=== PATIENT | male | born 1945 | race Caucasian/White ===

== ENCOUNTER 2017-05-05 19:56 | Inpatient (IN) | payer MEDICARE ==
[~2017-05-05] VITALS: Ht 167.6 cm; Wt 72.8 kg
[2017-05-05 20:57] VITALS: BP 183/79
[2017-05-05 20:58] VITALS: BP 183/79
[2017-05-05 21:15] VITALS: BP 172/68
[2017-05-05] MEDS ORDERED: SODIUM CHLORIDE FLUSH 10 ML SYR INJ PRN (22:15)
[2017-05-05] MEDS ORDERED: VANCOMYCIN 1GM/NS 250 ML 250 ML IV SCH (23:00)
[2017-05-05] MEDS ORDERED: SODIUM CHLORIDE 0.9% 250ML 250 ML ONE (23:21)
[2017-05-06] VITALS (7 sets, daily range): BP systolic 120–186; BP diastolic 57–88
[2017-05-06] MEDS: HYDROCODONE/APAP 7.5MG-325MG 1 EA TAB PO PRN
[2017-05-06] MEDS: PIPER-TAZ 3.375 GM 50 ML IV SCH ×2 (01:50→05:20)
[2017-05-06 06:56] LABS: BASOPHILS # (AUTO) 0.1 (0.0-0.1); BASOPHILS % 0.8 % (0.0-1.0); EOSINOPHILS # (AUTO) 0.5 (0.0-0.4); EOSINOPHILS % 4.6 % (0.0-6.0); HEMATOCRIT 40.2 % (38.2-49.6); HEMOGLOBIN 12.3 g/dL (14.0-18.0); LYMPHOCYTES # (AUTO) 4.1 (1.0-3.2); LYMPHOCYTES % 39.5 % (18.0-39.1); MEAN CORPUSCULAR HEMOGLOBIN 30.6 pg (28-32); MEAN CORPUSCULAR HGB CONC 30.6 g/dL (31-35); NEUTROPHILS # (AUTO) 4.6 (2.1-6.9); NEUTROPHILS % 44.3 % (38.7-80.0); PLATELET COUNT 286 x10e3/uL (140-360); RED BLOOD COUNT 4.02 x10e6/uL (4.3-5.7); RED CELL DISTRIBUTION WIDTH 14.6 % (11.7-14.4)
[2017-05-06 07:21] LABS: ANION GAP 19.7 mmol/L (8-16); CALCIUM 7.1 mg/dL (8.4-10.2); CREATININE, SERUM 6.8 mg/dL (0.72-1.25); POTASSIUM 3.7 mmol/L (3.5-5.1)
--- NOTE | 2017-05-06 11:07 | Consultation ---
DATE OF CONSULTATION: May 06, 2017 INFECTIOUS DISEASE CONSULTATION ATTENDING PHYSICIAN: Dr. Hector Sims REASON FOR CONSULTATION: Right foot gangrene. Thank you, Dr. Leach and Dr. Sims for asking me to see this patient. HISTORY: The patient is a 71-year-old man referred for right foot gangrene. He was admitted from Dr. Leach's office. He does not recall exactly how the right great toe lesion began. However, he remembers the right great toenail falling off a few months ago. Subsequently, he was evaluated by the primary care physician and treated with ciprofloxacin, which he was taking as prescribed until admission. Unfortunately, he noted progressive discoloration of the right great toe and decided to see Dr. Leach. He denies fever and chills. PAST MEDICAL HISTORY 1. Diabetes mellitus, type 2. 2. Hypertension. 3. Hyperlipidemia. 4. End-stage renal disease. 5. Peripheral arterial disease, status post stenting. 6. Lung cancer treated with surgery. PAST SURGICAL HISTORY 1. C5-C6 fusion. 2. AICD implant. 3. Left upper lobectomy for lung cancer. 4. Cholecystectomy. 5. Right arm fistula creation. ALLERGIES: IODINE. MEDICATIONS: See MAR. The current antibiotics are Zosyn 3.375 g IV piggyback q.6 h. and vancomycin 1 g IV piggyback q.12 h. IMMUNIZATIONS: He received influenza and pneumococcal vaccination prior to admission. He does not recall receiving tetanus vaccine in more than 10 years. FAMILY HISTORY: Significant for pneumoconiosis and emphysema. SOCIAL HISTORY: He quit smoking cigarettes about 30 years ago. REVIEW OF SYSTEMS: As per history of present illness. PHYSICAL EXAMINATION GENERAL: No acute distress. VITAL SIGNS: T-max 99.1, pulse 66, respiratory rate 18, blood pressure 144/66, weight 160 pounds. HEENT: Normocephalic. There is no icterus or injection of conjunctivae. There is no ear or nasal discharge. Edentulous with moist oral mucosa. No pharyngeal erythema. NECK: Supple. No lymphadenopathy. LUNGS: Good air entry bilaterally. HEART: Normal S1 and S2. ABDOMEN: Soft and nontender. EXTREMITIES: There is edema and gangrene of the right great toe with black discoloration of the distal phalanx as well as malodor. The dorsalis pedis and posterior tibial pulses are difficult to palpate. There is no edema, clubbing or cyanosis of the rest of the extremities. SKIN: There is necrosis of the right great toe. DINING ROOM BUSSER: Awake, alert and oriented to person, place and time. There is decreased sensation on monofilament examination of the feet. Also, there is decreased vibration sensation of both feet and ankles. Nonfocal. LABORATORY: WBC 10,440, hemoglobin 12.3, platelets 286, neutrophils 44.3, lymphocytes 39.5, monos 10, eosinophils 4.6, basophils 0.8. BUN 6.8, creatinine 4.2, blood glucose 278, hemoglobin A1c 8.5. IMPRESSION 1. Right great toe gangrene. 2. Right diabetic foot ulcer with probable osteomyelitis of the distal phalanx of the right great toe. 3. Diabetes mellitus, type 2, with peripheral neuropathy, uncontrolled. 4. End-stage renal disease. 5. Peripheral arterial disease, status post stenting. PLAN 1. Change vancomycin to 1 g IV piggyback post hemodialysis and Zosyn to 2.25 g IV piggyback q.8 h. Tetanus-Diphtheria vaccination discussed with the patient. 2. Check ESR and C-reactive protein. 3. Await possible amputation of the right great toe. Job#: [id number] JOSÉ MIGUEL ARREOLA
[2017-05-06 11:42] LABS: ANISOCYTOSIS SLIGHT; EOSINOPHILS % (MANUAL) 4 % (0-7); LYMPHOCYTES % (MANUAL) 23 % (19-48); MONOCYTES % (MANUAL) 7 % (3.4-9.0); NEUTROPHILS % (MANUAL) 48 % (40-74); PLATELET ESTIMATE ADEQUATE; PLATELET MORPHOLOGY COMMENT FEW GIANT; POIKILOCYTOSIS SLIGHT; RBC MORPHOLOGY COMMENT NORMAL
--- NOTE | 2017-05-06 12:23 | Consultation ---
DATE OF CONSULTATION: May 06, 2017 RENAL CONSULTATION HISTORY OF PRESENT ILLNESS: Mr. Agustin Valencia is a 71-year-old gentleman well known to our nephrology service on dialysis on Friday//Friday schedule. Renal consult for management of kidney failure. He is otherwise awake, alert, comfortable. Has been admitted with gangrenous foot. Please see Dr. Long Zapata's note for detail. He is currently awake, alert. Denies any nausea, vomiting, shortness of breath ALLERGIES: HE IS ALLERGIC TO IODINE. CURRENT MEDICATIONS: Include vancomycin post dialysis and Tylenol and hydrocodone p.r.n. SOCIAL HISTORY: Patient does not smoke or drink. PAST MEDICAL HISTORY: Significant for secondary hyperparathyroidism, anemia, chronic kidney disease, severe peripheral vascular disease, coronary artery disease, end-stage renal disease. FAMILY HISTORY: Significant for hypertension. PHYSICAL EXAMINATION: GENERAL: Awake, alert, lying supine. No apparent distress. VITALS: Blood pressure 144/66, pulse rate 80. HEAD AND NECK: Cornea clear. Oral mucosa moist. Neck veins flat. LUNGS: Bibasilar rales. HEART: S1/S2 audible. ABDOMEN: Soft, nontender. LOWER EXTREMITY EXAMINATION: Shows no edema. Dressing over the foot noted. IMPRESSION: 1. Evidence of fluid overload. 2. Secondary hyperparathyroidism. Will resume phosphorus binders. Obtain Mircera schedule from the dialysis unit. Blood pressure appears controlled. Arrange for dialysis. Further recommendation . Job#: [id number] EV
--- NOTE | 2017-05-06 13:40 | Consultation ---
DATE OF CONSULTATION: May 06, 2017 PODIATRY CONSULTATION REASON FOR CONSULTATION: Followup regarding right foot gangrene, particularly the great toe. HISTORY OF PRESENT ILLNESS: Mr. Valencia is a pleasant male 71 years of age, originally seen last David at my office with gangrenous changes associated to the right foot, particularly the right great toe. Subsequently was seen several days later, albeit yesterday, for further followup with malodor associated to his right foot with gangrenous changes to the distal aspect of the right foot, albeit hallux, and due to the appearance of the same, recommended inpatient management and perhaps ultimately amputation of the digit, and at this point he is currently being worked up for the same. PAST MEDICAL HISTORY: Remarkable for 1. Diabetes. 2. Hypertension. 3. Hyperlipidemia. 4. End-stage renal disease. 5. Peripheral arterial disease. 6. Lung cancer. SURGICAL HISTORY: Multiple include left lung lobectomy, cholecystectomy, fistula creation for hemodialysis, AICD implant, and cervical fusion. ALLERGIES: IODINE. MEDICATIONS: Please see MAR for current medication list. FAMILY HISTORY: Noncontributory. SOCIAL HISTORY: Relates no more smoking. Occasional alcohol use. Denies any illicit drug use. REVIEW OF SYSTEMS: Eleven-point review of systems otherwise negative. PHYSICAL EXAMINATION: VITAL SIGNS: Stable. He is afebrile with a T-max of 99.1. GENERAL: AO x3, NAD. HEENT: Normocephalic, atraumatic, anicteric. Moist mucosal membranes. NECK: Supple. No JVD. CHEST: Symmetrical expansion. ABDOMEN: Soft, nontender, nondistended. PSYCHIATRIC: Normal affect. EXTREMITIES: Discoloration distal aspect of the great toe distally with gangrenous changes, malodor, some erythema extending proximally. DIAGNOSTIC DATA: HbA1c 8.5. Accu-Chek 278. Hemoglobin and hematocrit 12.3 and 40.2 respectively. ASSESSMENT 1. Right foot gangrene, particularly the great toe. 2. Diabetic ulceration right foot. 3. End-stage renal disease on hemodialysis, diabetic with type 2 diabetes uncontrolled with a history of peripheral arterial disease. PLAN: Further workup. Will ultimately need a right great toe amputation. Appreciate infectious disease as well as renal and internal medicine's input. Job#: [id number] EV
[2017-05-06] MEDS: SEVELAMER CARBONATE 800 MG TAB PO SCH ×2 (14:21→17:00)
[2017-05-06] MEDS ORDERED: SODIUM BICARBONATE 8.4% SYRING 0 ML ONE (16:24)
[2017-05-06] MEDS ORDERED: SODIUM CHLORIDE 0.9% 1000ML 2,000 ML ONE (16:25)
[2017-05-06] MEDS ORDERED: DEXTROSE 50% SYRINGE 50 ML IV PRN (18:15)
[2017-05-06] MEDS ORDERED: NIFEDIPINE CR 30 MG TAB PO NR (18:30)
[2017-05-06] MEDS: NIFEDIPINE CR 30 MG TAB PO SCH (19:42)
[2017-05-06] MEDS ORDERED: CARVEDILOL12.5 MG PO (20:41)
[2017-05-06] MEDS ORDERED: NIFEDIPINE ER30 M1 (20:41)
[2017-05-06] MEDS ORDERED: HYDRALAZINE HCL25 MG PO (20:41)
[2017-05-06] MEDS ORDERED: CLOPIDOGREL75 MG PO (20:41)
[2017-05-06] MEDS ORDERED: PRAVASTATIN SOD40 MG (20:41)
[2017-05-06] MEDS ORDERED: FAMOTIDINE20 MG PO (20:41)
[2017-05-06] MEDS ORDERED: METOPROLOL SUCC25 MG (20:41)
[2017-05-06] MEDS ORDERED: GABAPENTIN300 MG PO (20:41)
[2017-05-06] MEDS ORDERED: SERTRALINE HCL50 MG PO (20:42)
[2017-05-06] MEDS ORDERED: HUMULIN R100 UNIT/2 (20:43)
[2017-05-06] MEDS: INSULIN LISPRO 100 UNIT/1 ML 3ML VIAL SQ SCH (21:00)
[2017-05-06] MEDS: INSULIN DETEMIR 100 UNIT/ML PEN SQ SCH (21:00)
[2017-05-06] MEDS ORDERED: VANCOMYCIN 1GM/NS 250 ML 250 ML IV SCH (23:00)
[2017-05-06] MEDS ORDERED: NIFEDIPINE CR 30 MG TAB PO ONE (23:00)
[2017-05-06] MEDS: SENNOSIDES 8.6 MG TAB PO SCH (23:04)
[2017-05-07] VITALS (8 sets, daily range): BP systolic 125–178; BP diastolic 62–87
[2017-05-07] MEDS: INSULIN LISPRO 100 UNIT/1 ML 3ML VIAL SQ SCH ×4 (07:30→21:00)
[2017-05-07] MEDS: SEVELAMER CARBONATE 800 MG TAB PO SCH ×3 (08:18→16:24)
[2017-05-07] MEDS: HYDROCODONE/APAP 7.5MG-325MG 1 EA TAB PO PRN (09:34)
[2017-05-07] MEDS: PIPERACILLIN/TAZO 2.25 GM 50 ML IV SCH ×2 (10:41→17:57)
[2017-05-07] MEDS ORDERED: TETANUS/DIPHTHERIA TOX ADULT 0.5 ML SYR IM ONE (10:45)
[2017-05-07] MEDS ORDERED: TETANUS/DIPHTHERIA TOX ADULT 0.5 ML SYR IM SCH (11:00)
[2017-05-07] MEDS: VALSARTAN 80 MG TAB PO SCH (17:58)
[2017-05-07] MEDS: INSULIN DETEMIR 100 UNIT/ML PEN SQ SCH (21:00)
[2017-05-07] MEDS: SENNOSIDES 8.6 MG TAB PO SCH (21:15)
[2017-05-08] VITALS: BP 156/89
[2017-05-08] MEDS: PIPERACILLIN/TAZO 2.25 GM 50 ML IV SCH ×3 (02:14→18:00)
[2017-05-08] MEDS: HYDROCODONE/APAP 7.5MG-325MG 1 EA TAB PO PRN ×3 (03:00→23:55)
[2017-05-08 04:00] VITALS: BP 147/66
[2017-05-08] MEDS: NIFEDIPINE CR 30 MG TAB PO SCH ×2 (06:00→23:50)
[2017-05-08] MEDS: INSULIN LISPRO 100 UNIT/1 ML 3ML VIAL SQ SCH ×4 (07:30→20:58)
[2017-05-08 07:38] VITALS: BP 179/79
[2017-05-08] MEDS: SEVELAMER CARBONATE 800 MG TAB PO SCH ×3 (07:55→17:00)
[2017-05-08 09:48] VITALS: BP 179/79
[2017-05-08] MEDS ORDERED: LIDOCAINE HCL 2% LOCAL 20 ML VIAL ONE (11:22)
[2017-05-08] MEDS ORDERED: BACITRACIN 50,000 UNIT VIAL ONE (11:22)
[2017-05-08 12:15] VITALS: BP 164/74
[2017-05-08] MEDS ORDERED: SODIUM CHLORIDE 0.9% 1000ML 1,000 ML ONE (14:23)
[2017-05-08 15:34] VITALS: BP 140/78
[2017-05-08] MEDS: VALSARTAN 80 MG TAB PO SCH (18:58)
[2017-05-08] MEDS ORDERED: SODIUM CHLORIDE 0.9% 250ML 250 ML ONE (20:24)
[2017-05-08] MEDS: INSULIN DETEMIR 100 UNIT/ML PEN SQ SCH (20:58)
[2017-05-08] MEDS: SENNOSIDES 8.6 MG TAB PO SCH (21:00)
[2017-05-08] MEDS ORDERED: CLONIDINE HCL 0.1 MG TAB PO PRN (21:30)
[2017-05-08] MEDS: HYDRALAZINE HCL 25 MG TAB PO SCH (23:55)
[2017-05-09] MEDS: PIPERACILLIN/TAZO 2.25 GM 50 ML IV SCH ×3 (01:56→18:04)
[2017-05-09] MEDS: HYDRALAZINE HCL 25 MG TAB PO SCH ×4 (05:51→18:04)
[2017-05-09] MEDS: INSULIN LISPRO 100 UNIT/1 ML 3ML VIAL SQ SCH ×4 (07:30→20:57)
[2017-05-09 07:48] VITALS: BP 166/78
[2017-05-09] MEDS: SEVELAMER CARBONATE 800 MG TAB PO SCH ×3 (08:00→18:04)
[2017-05-09] MEDS: SERTRALINE HCL 50 MG TAB PO SCH (08:35)
[2017-05-09] MEDS: FAMOTIDINE 20 MG TAB PO SCH (08:36)
[2017-05-09 08:48] LABS: ANION GAP 17.2 mmol/L (8-16); CALCIUM 8.5 mg/dL (8.4-10.2); CREATININE, SERUM 3.89 mg/dL (0.72-1.25); POTASSIUM 4.2 mmol/L (3.5-5.1)
[2017-05-09] MEDS: CARVEDILOL 12.5 MG TAB PO SCH ×2 (08:58→18:03)
[2017-05-09] MEDS: GABAPENTIN 300 MG CAP PO SCH ×2 (08:59→18:03)
[2017-05-09] MEDS: NIFEDIPINE CR 30 MG TAB PO SCH ×2 (08:59→18:04)
[2017-05-09 09:28] VITALS: BP 166/78
[2017-05-09] MEDS ORDERED: FLUCONAZOLE 200 MG/100 ML 100 ML IV ONE (09:51)
[2017-05-09] MEDS: HYDROCODONE/APAP 7.5MG-325MG 1 EA TAB PO PRN ×2 (09:58→21:57)
[2017-05-09] MEDS ORDERED: SODIUM CHLORIDE 0.9% 500ML 500 ML ONE (12:28)
[2017-05-09] MEDS ORDERED: VANCOMYCIN HCL 1 GM VIAL ONE (12:57)
[2017-05-09] MEDS ORDERED: LIDOCAINE HCL 1% LOCAL INJ 20 ML VIAL ONE (13:22)
[2017-05-09] MEDS ORDERED: BUPIVACAINE HCL 0.5% INJ 30 ML VIAL INJ ONE (13:22)
[2017-05-09] MEDS ORDERED: MUPIROCIN 2% OINT 22 GM TUBE ONE (13:41)
--- NOTE | 2017-05-09 14:34 | Diagnostic Imaging Report ---
PROCEDURE:X-RAY RIGHT FOOT, TWO VIEWS COMPARISON:None. INDICATIONS:POST OP FOOT AMPUTATION SX FINDINGS: See conclusion. CONCLUSION: AP and lateral post-operative views of the right foot with overlying bandage material show post-surgical changes of first toe amputation at the level of metatarsophalangeal joint. There is surrounding soft-tissue swelling consistent with recent surgery. Vascular calcifications. Dictated by: Arturo Franklin M.D. on 05/09/2017 at 14:35 Electronically approved by: Arturo Franklin M.D. on 05/09/2017 at 14:35
--- NOTE | 2017-05-09 14:40 | Operative Report ---
DATE OF PROCEDURE: May 09, 2017 PREOPERATIVE DIAGNOSIS: Gangrene right great toe. POSTOPERATIVE DIAGNOSIS: Gangrene right great toe. PROCEDURE PERFORMED 1. Amputation at the level of the 1st metatarsophalangeal joint right foot. 2. Rotational flap closure. ANESTHESIA: MAC and local. HEMOSTASIS: Pneumatic tourniquet right ankle inflated to 250 mmHg. ESTIMATED BLOOD LOSS: Less than 5 mL. PATHOLOGY: Hallux. DORMITORY COUNSELOR: None. INDICATIONS FOR PROCEDURE: Mr. Valencia is a pleasant male having a gangrenous right great toe. He was admitted secondary to the same, worked up, and at this point ready for surgical intervention, albeit amputation of the same as no other treatment is available. He was educated on the risks and complications including but not limited to the need for further more proximal amputations if the aforementioned fails. DESCRIPTION OF PROCEDURE: Under mild sedation, he was brought to the operating room and placed on the operating room table in the supine position. Following induction and administration of general LMA anesthesia by anesthesia services, a well-padded pneumatic tourniquet was placed on the patient's right ankle. Next, the distal right lower extremity was scrubbed, prepped and draped in the usual aseptic manner. The extremity was then elevated and exsanguinated and a tourniquet inflated to 250 mmHg. The distal right foot and ankle were then scrubbed, prepped and draped in the usual aseptic manner. Attention was then directed to the medial aspect of the right foot where fishmouth-like incisions were created overlying the distal interphalangeal joint. Unfortunately, at this point disarticulation at that level was not possible secondary to a significant amount of skin distal to the same had necrosed and there was no availability for primary closure. Thus at this point a complete phalangectomy was performed, albeit proximal phalanx, disarticulating it at the level of the metatarsophalangeal joint. Procedure number 2, rotational flap closure: Then pedicles were created and, after rotation of such, primary closures were obtained via rotational flap. Local block was then administered prior to procedure as well as post, and compressive dressings were then subsequently applied. He was then transferred to the PACU after tourniquet deflation. Noted that during the procedure the left biceps got engorged secondary to presumably poor IV access, and secondary to the same in PACU a PICC line was ordered to have reliable IV access. Job#: [id number] EV
[2017-05-09] MEDS ORDERED: PROPOFOL IV EMULSION 10 MG/ML 20 ML VIAL ONE (18:09)
[2017-05-09] MEDS ORDERED: MIDAZOLAM HCL 2 MG/2 ML VIAL ONE (18:27)
[2017-05-09] MEDS ORDERED: FENTANYL CITRATE/PF 100MCG/2 ML INJ ONE (18:27)
[2017-05-09] MEDS: INSULIN DETEMIR 100 UNIT/ML PEN SQ SCH (20:57)
[2017-05-09] MEDS: SENNOSIDES 8.6 MG TAB PO SCH (20:58)
[2017-05-09] MEDS: VALSARTAN 80 MG TAB PO SCH (20:58)
[2017-05-09 21:10] VITALS: BP 119/80
[2017-05-10] VITALS (7 sets, daily range): BP systolic 100–157; BP diastolic 49–93
[2017-05-10] MEDS: PIPERACILLIN/TAZO 2.25 GM 50 ML IV SCH ×3 (03:46→20:59)
[2017-05-10] MEDS: HYDRALAZINE HCL 25 MG TAB PO SCH ×4 (06:00→17:24)
[2017-05-10] MEDS: INSULIN LISPRO 100 UNIT/1 ML 3ML VIAL SQ SCH ×4 (07:57→20:52)
[2017-05-10] MEDS: SEVELAMER CARBONATE 800 MG TAB PO SCH ×3 (08:10→17:00)
[2017-05-10] MEDS: HYDROCODONE/APAP 7.5MG-325MG 1 EA TAB PO PRN (08:11)
[2017-05-10] MEDS: NIFEDIPINE CR 30 MG TAB PO SCH ×2 (09:10→17:00)
[2017-05-10] MEDS: SERTRALINE HCL 50 MG TAB PO SCH (09:10)
[2017-05-10] MEDS: FAMOTIDINE 20 MG TAB PO SCH (09:10)
[2017-05-10] MEDS: GABAPENTIN 300 MG CAP PO SCH ×2 (09:10→17:00)
[2017-05-10] MEDS: CARVEDILOL 12.5 MG TAB PO SCH ×2 (09:10→17:00)
[2017-05-10] MEDS ORDERED: KETOROLAC TROMETHAMINE 30 MG/ML VIAL IV PRN (13:30)
[2017-05-10] MEDS: HYDROCODONE/APAP 10MG-325MG TAB PO PRN ×2 (13:53→20:53)
[2017-05-10] MEDS: SENNOSIDES 8.6 MG TAB PO SCH (17:00)
[2017-05-10] MEDS: INSULIN DETEMIR 100 UNIT/ML PEN SQ SCH (20:52)
[2017-05-10] MEDS: VALSARTAN 80 MG TAB PO SCH (20:52)
[2017-05-11] VITALS (7 sets, daily range): BP systolic 110–183; BP diastolic 51–86
[2017-05-11] MEDS: HYDRALAZINE HCL 25 MG TAB PO SCH ×3 (00:48→11:47)
[2017-05-11] MEDS: PIPERACILLIN/TAZO 2.25 GM 50 ML IV SCH ×2 (01:49→10:14)
[2017-05-11] MEDS: INSULIN LISPRO 100 UNIT/1 ML 3ML VIAL SQ SCH ×4 (08:00→21:40)
[2017-05-11] MEDS: SEVELAMER CARBONATE 800 MG TAB PO SCH ×3 (08:00→16:35)
[2017-05-11] MEDS: CARVEDILOL 12.5 MG TAB PO SCH ×2 (09:00→16:31)
[2017-05-11] MEDS: NIFEDIPINE CR 30 MG TAB PO SCH ×2 (09:00→16:32)
[2017-05-11] MEDS: FAMOTIDINE 20 MG TAB PO SCH (09:22)
[2017-05-11] MEDS: GABAPENTIN 300 MG CAP PO SCH ×2 (09:22→16:35)
[2017-05-11] MEDS: SERTRALINE HCL 50 MG TAB PO SCH (09:23)
[2017-05-11] MEDS: SENNOSIDES 8.6 MG TAB PO SCH ×2 (09:23→17:00)
[2017-05-11] MEDS: HYDROCODONE/APAP 10MG-325MG TAB PO PRN (10:17)
[2017-05-11] MEDS ORDERED: HYDRALAZINE HCL 25 MG TAB PO PRN (15:30)
[2017-05-11] MEDS ORDERED: VANCOMYCIN 1GM/NS 250 ML 250 ML IV SCH (16:00)
[2017-05-11] MEDS: VALSARTAN 80 MG TAB PO SCH (20:19)
[2017-05-12] VITALS (7 sets, daily range): BP systolic 136–168; BP diastolic 64–89
[2017-05-12] MEDS: INSULIN LISPRO 100 UNIT/1 ML 3ML VIAL SQ SCH ×4 (07:30→21:47)
[2017-05-12] MEDS: SEVELAMER CARBONATE 800 MG TAB PO SCH ×3 (08:00→16:02)
[2017-05-12] MEDS: SENNOSIDES 8.6 MG TAB PO SCH ×2 (09:20→16:02)
[2017-05-12] MEDS: SERTRALINE HCL 50 MG TAB PO SCH (09:20)
[2017-05-12] MEDS: CARVEDILOL 12.5 MG TAB PO SCH ×3 (09:20→16:03)
[2017-05-12] MEDS: NIFEDIPINE CR 30 MG TAB PO SCH ×3 (09:20→16:03)
[2017-05-12] MEDS: FAMOTIDINE 20 MG TAB PO SCH (09:20)
[2017-05-12] MEDS: GABAPENTIN 300 MG CAP PO SCH ×2 (09:20→16:02)
[2017-05-12] MEDS ORDERED: CEFEPIME HCL 1 GM VIAL IV SCH (09:30)
[2017-05-12 10:46] LABS: THYROID STIMULATING HORMONE 0.719 uIU/mL (0.350-4.940)
[2017-05-12 10:55] LABS: FOLATE 9.3 ng/mL (7.0-15.4)
[2017-05-12 13:23] LABS: INR 1.15; PROTHROMBIN TIME 13.8 seconds (11.9-14.5)
[2017-05-12 13:24] LABS: PARTIAL THROMBOPLASTIN TIME 39.2 seconds (23.8-35.5)
[2017-05-12] MEDS ORDERED: SODIUM CHLORIDE 0.9% 500ML 500 ML ONE (13:57)
[2017-05-12] MEDS ORDERED: LIDOCAINE HCL 2% LOCAL 20 ML VIAL ONE (13:57)
[2017-05-12] MEDS ORDERED: HEPARIN SOD (PORCINE) 1000 UNIT/ML 30ML ONE (14:45)
[2017-05-12] MEDS: VALSARTAN 80 MG TAB PO SCH (21:46)
[2017-05-13] VITALS: BP_SYST 121; BP_SYST 175; BP_DIAS 64; BP_DIAS 89
[2017-05-13 04:00] VITALS: BP 138/63
[2017-05-13 06:32] LABS: BASOPHILS # (AUTO) 0.1 (0.0-0.1); BASOPHILS % 0.7 % (0.0-1.0); EOSINOPHILS # (AUTO) 0.8 (0.0-0.4); EOSINOPHILS % 5.5 % (0.0-6.0); HEMATOCRIT 37.6 % (38.2-49.6); HEMOGLOBIN 11.6 g/dL (14.0-18.0); LYMPHOCYTES # (AUTO) 2.8 (1.0-3.2); LYMPHOCYTES % 18.5 % (18.0-39.1); MEAN CORPUSCULAR HEMOGLOBIN 30.2 pg (28-32); MEAN CORPUSCULAR HGB CONC 30.9 g/dL (31-35); MEAN CORPUSCULAR VOLUME 97.9 fL (81-99); MONOCYTES # (AUTO) 1.4 (0.2-0.8); MONOCYTES % 9.1 % (4.4-11.3); NEUTROPHILS # (AUTO) 9.8 (2.1-6.9); NEUTROPHILS % 65.7 % (38.7-80.0); PLATELET COUNT 334 x10e3/uL (140-360); RED BLOOD COUNT 3.84 x10e6/uL (4.3-5.7); RED CELL DISTRIBUTION WIDTH 14.8 % (11.7-14.4)
[2017-05-13 06:52] LABS: ANION GAP 14.6 mmol/L (8-16); CALCIUM 7.7 mg/dL (8.4-10.2); CREATININE, SERUM 6.79 mg/dL (0.72-1.25); POTASSIUM 4.6 mmol/L (3.5-5.1)
[2017-05-13] MEDS: INSULIN LISPRO 100 UNIT/1 ML 3ML VIAL SQ SCH ×3 (07:48→16:30)
[2017-05-13 07:50] VITALS: BP 160/87
[2017-05-13] MEDS ORDERED: MANNITOL 25% 12.5GM/50ML 50 ML ONE ×2 (07:58→08:07)
[2017-05-13] MEDS ORDERED: SODIUM CHLORIDE 0.9% 1000ML 2,000 ML ONE (07:58)
[2017-05-13] MEDS: SEVELAMER CARBONATE 800 MG TAB PO SCH ×3 (08:17→16:48)
[2017-05-13] MEDS: SERTRALINE HCL 50 MG TAB PO SCH (08:17)
[2017-05-13] MEDS: FAMOTIDINE 20 MG TAB PO SCH (08:17)
[2017-05-13] MEDS: GABAPENTIN 300 MG CAP PO SCH ×2 (08:17→16:48)
[2017-05-13] MEDS: SENNOSIDES 8.6 MG TAB PO SCH ×2 (08:18→16:48)
[2017-05-13] MEDS: NIFEDIPINE CR 30 MG TAB PO SCH ×2 (09:00→16:48)
[2017-05-13] MEDS: CARVEDILOL 12.5 MG TAB PO SCH ×2 (09:00→16:48)
[2017-05-13 09:30] VITALS: BP 160/87
[2017-05-13] MEDS ORDERED: CEFEPIME HCL 1 GM VIAL IV SCH (09:30)
[2017-05-13 13:35] VITALS: BP 91/57
[2017-05-13 16:14] VITALS: BP 162/84
--- NOTE | 2017-05-13 19:24 | Discharge Summary ---
PRIMARY CARE PROVIDER: Dr. David Stovall. LIBRARY TECHNOLOGY INSTRUCTOR: Dr. Long Zapata. Dr. Eddie Leach. FINAL DIAGNOSES: 1. Right greater toe infected, gangrene, associated with intractable pain, osteomyelitis of the greater toe metatarsal. 2. Status post a right greater toe amputation. 3. End-stage renal disease on dialysis. 4. Diabetes type 2. SUMMARY: Patient is a pleasant but unfortunate 71-year-old male, has ongoing right greater toe infection, gangrene basically. The patient has multiple baseline problems including left lung lobectomy for previous lung cancer, cholecystectomy, fistula creation for the dialysis, had AICD placement, cervical fusion, coronary disease. He does have a right greater toe gangrene. The patient has basically a progressive infected diabetic foot ulcer on the right side. Patient is now treated with post amputation. There is some surrounding erythema, and the patient will continue with antibiotics. Arrangement has been made for the patient to go to [facility] skilled facility for a lower level of care but continue with the infusion of cefepime 1 gram a day and vancomycin post dialysis. Vancomycin 1 gram a day for 7 days total and then the vancomycin 10 doses total. Patient is stable, discharged today. He will be followed. He will need to follow up with Dr. Bulmaro Leach in approximately 1 to 2 weeks per his instructions. He will continue with wound care, physical therapy and dialysis at the skilled facility. The patient is stable, discharged today. Job#: [id number] BUTCH
--- NOTE | 2017-05-27 10:30 | Diagnostic Imaging Report ---
Procedure: Tunneled central catheter placement. Medications: 1% lidocaine. The patient's vital signs, including pulse oximetry, were continuously monitored by the interventional radiology nurse. Fluoroscopy time: 1.2 minutes. Dose area product: 162.5 cGycm2 Contrast used: None Estimated blood loss: Minimal. Complications: No immediate. Procedure in detail: Informed consent for the procedure was obtained from the patient after discussion of risks and benefits. The right neck and upper chest was prepped and draped in the standard sterile fashion after the patient was placed in the supine position on the fluoroscopic table. 1% lidocaine was administered into the skin and subcutaneous tissues of the right lower neck for local anesthesia. Then, under continuous sonographic guidance, a 21-gauge micropuncture needle was advanced into the right internal jugular vein. A 0.018 inch wire was advanced centrally under fluoroscopic guidance. The needle was then removed and access was secured with a micropuncture sheath. A 0.035 inch Amplatz wire was then advanced through the micropuncture sheath into the inferior vena cava under fluoroscopic guidance. Attention was then turned to the right upper chest. A suitable catheter exit site was determined, approximately 3 fingerbreadths inferior to the clavicle. The skin was marked. 1% lidocaine was used to anesthetize a subcutaneous tract extending from the planned catheter exit site to the venotomy at the right lower neck. A stab incision was made on the right upper chest. Subsequently, the catheter was tunneled from the exit site of the right upper chest to the venotomy at the right lower neck. The retention cuff of the catheter was advanced well into the subcutaneous tunnel. A 10-Hungarian peel-away sheath was advanced over the wire under fluoroscopic guidance. The wire and inner dilator of the sheath were removed and a Bard 9.6 Fr cuffed catheter was advanced through the peel-away sheath, which was then broken and removed. The catheter tip was positioned in the upper right atrium. The lumen was then packed with 1000 units of heparin. The catheter was secured at the exit site on the right upper chest with a pursestring suture utilizing 4-0 Vicryl. The venotomy at the right lower neck was closed with tissue adhesive and interrupted 4-0 Vicryl sutures. A sterile dressing was applied. The patient tolerated the procedure well without immediate complication. Impression: Successful placement of a tunneled single lumen catheter by a right internal jugular approach. Signed by: Dr. Naun Kc DO on 05/15/2017 11:31 AM
== END 2017-05-13 18:42 | DRG 617 ==
LOC: MED/SURG2 19:56 → UNDODISIN 21:25
PROVIDERS: ADMIT Internal Medicine; ATTEND Internal Medicine
PROC: 5A1D70Z Performance of Urinary Filtration, Intermittent, Less than 6 Hours Per Day (ICD-10-PCS; 2017-05-06)
PROC: 0HXMXZZ Transfer Right Foot Skin, External Approach (ICD-10-PCS; 2017-05-09)
PROC: 02HV33Z Insertion of Infusion Device into Superior Vena Cava, Percutaneous Approach (ICD-10-PCS; 2017-05-09)
PROC: 0Y6P0Z0 Detachment at Right 1st Toe, Complete, Open Approach (ICD-10-PCS; principal; 2017-05-09 12:30)
DX: E11.69 Type 2 diabetes mellitus with other specified complication (principal); M86.171 Other acute osteomyelitis, right ankle and foot; I12.0 Hypertensive chronic kidney disease with stage 5 chronic kidney disease or end stage renal disease; E11.52 Type 2 diabetes mellitus with diabetic peripheral angiopathy with gangrene; N18.6 End stage renal disease; E11.22 Type 2 diabetes mellitus with diabetic chronic kidney disease; E11.621 Type 2 diabetes mellitus with foot ulcer; Z99.2 Dependence on renal dialysis; Z95.810 Presence of automatic (implantable) cardiac defibrillator; L97.519 Non-pressure chronic ulcer of other part of right foot with unspecified severity; E78.5 Hyperlipidemia, unspecified; Z85.118 Personal history of other malignant neoplasm of bronchus and lung; Z87.891 Personal history of nicotine dependence; E11.65 Type 2 diabetes mellitus with hyperglycemia; N25.81 Secondary hyperparathyroidism of renal origin; E87.70 Fluid overload, unspecified
CPT/HCPCS: 36415; 36558; 74470; 77001; 80048; 82607; 82746; 82948; 83036; 83540; 84132; 84443; 84466; 85025; 85610; 85651; 85730; 86140; 87340; 88305; 88311; 90714; 90962; 93005; C1751; C1769; J0692; J1450; J1644; J2001; J2150; J2250; J2543; J3370; J7030; J7040; J7050; J7799

== ENCOUNTER → 2017-06-02 | Outpatient (CLI) | payer MEDICARE ==
[~2017-06-02] MED LIST: CARVEDILOL12.5 MG PO; CLOPIDOGREL75 MG PO; FAMOTIDINE20 MG PO; GABAPENTIN300 MG PO; HUMULIN R100 UNIT/2; HYDRALAZINE HCL25 MG PO; METOPROLOL SUCC25 MG; NIFEDIPINE ER30 M1; PRAVASTATIN SOD40 MG; SERTRALINE HCL50 MG PO
== END ==
LOC: DX 15:45
PROVIDERS: ATTEND Internal Medicine
DX: Z45.2 Encounter for adjustment and management of vascular access device (principal); I96 Gangrene, not elsewhere classified
CPT/HCPCS: 36589